=== PATIENT | male | born 1990 ===

== ENCOUNTER 2022-07-29 13:15 | Emergency (ER) | payer SELFPAY ==
[2022-07-29] MEDS ORDERED: Lidocaine 1% 5 ML VIAL INJECT ONE (14:09)
[2022-07-29] MEDS ORDERED: Bacitracin Oint 1 GM U/D Packet TOP ONE (14:10)
== END 2022-07-29 14:57 | disposition home or self-care (01) ==
LOC: DL.ED 13:15
DX: S61.211A Laceration without foreign body of left index finger without damage to nail, initial encounter (principal); W26.0XXA Contact with knife, initial encounter
CPT/HCPCS: 12001; 99282